=== PATIENT | male | born 1995 | race Caucasian/White ===

== ENCOUNTER 2017-11-03 00:21 | Emergency (ER) | payer OTHER ==
[~2017-11-03] VITALS: Ht 172.7 cm; Wt 62.7 kg
[2017-11-03 00:35] VITALS: TEMP 36.7; Ht 172.7 cm; Wt 62.7 kg
[2017-11-03] MEDS ORDERED: LORAZEPAM 0.5 MG TAB SL STA (00:40)
--- NOTE | 2017-11-03 01:03 | EMERGENCY ROOM VISIT NOTE ---
History Report prepared by Marisol: Alxeander Villasenor Under the Supervision of: Dr. Cedric Reynaga D.O. First contact with patient: 00:26 Chief Complaint: CHEST PAIN Stated Complaint: CHEST PAIN History of Present Illness The patient is a 22 year old male who presents to the Emergency Room with complaints of resolved chest pain that began 30 minutes ago. The patient reports a history of anxiety, which used to be more severe in the past. He reports he used to have anxiety every day and could "have a thought cause pain and inflammation of my skin". The patient states that today he was informed by [facility] that he was banned from campus. He reports that thinking about this situation made him anxious. The patient states that he was sitting on the toilet when he became nauseous and tachycardic. He reports that he vomited once on the toilet. The patient states that he became short of breath and started to experience chest pain. He states that he also experienced tingling in his hands. The patient states that he called EMS and went outside when he vomited again. He reports that after vomiting he felt relieved of symptoms. He states that his symptoms are similar to his usual anxiety attacks, which he has not had in months. The patient denies headache, change in vision, fevers, diarrhea, pain with urination, and melena. Source of History: patient Onset: 30 minutes ago Position: chest Timing: resolved Associated Symptoms: + SOB, + nausea, + vomiting, No fevers, No headache, No melena, No diarrhea, No urinary symptoms Note: Associated symptoms: tachycardia, tingling hands Review of Systems See HPI for pertinent positives & negatives. A total of 10 systems reviewed and were otherwise negative. Past Medical & Surgical Medical Problems: (1) Anxiety (2) Depression Family History Patient reports no known family medical history. Social History Smoking Status: Unknown if Ever Smoked Marital Status: single Housing Status: lives with roommate Occupation Status: employed Current/Historical Medications No Active Prescriptions or Reported Meds Allergies Coded Allergies: No Known Allergies (Unverified , 11/03/17) Physical Exam Vital Signs Date Time Temp Pulse Resp B/P (MAP) Pulse Ox O2 Delivery O2 Flow Rate FiO2 11/03/17 00:35 36.7 77 18 110/77 96 Room Air 11/03/17 00:35 Room Air Physical Exam GENERAL: Sitting up in bed, anxious, no acute distress, nontoxic, speaking in full sentences. EYE EXAM: normal conjunctiva. OROPHARYNX: no exudate, no erythema, lips, buccal mucosa, and tongue normal and mucous membranes are moist NECK: supple, no nuchal rigidity, no adenopathy, non-tender LUNGS: Clear to auscultation. Normal chest wall mechanics HEART: no murmurs, S1 normal and S2 normal ABDOMEN: abdomen soft, non-tender, normo-active bowel sounds, no masses, no rebound or guarding. BACK: Back is symmetrical on inspection and there is no deformity, no midline tenderness, no CVA tenderness. SKIN: no rashes and no bruising UPPER EXTREMITIES: upper extremities are grossly normal. LOWER EXTREMITIES: No pitting edema. Calves are equal bilaterally. NEURO EXAM: Normal sensorium, cranial nerves II-XII grossly intact, normal speech, no gross weakness of arms, no gross weakness of legs. Gross sensation intact. Medical Decision & Procedures ER Provider Diagnostic Interpretation: Radiology results as stated below per my review and interpretation: CHEST X-RAY PORTABLE AP UPRIGHT ONE VIEW: No focal infiltrate. No pneumothorax. Normal mediastinum. Laboratory Results 11/03/17 00:44 Red Blood Count 4.67, Mean Corpuscular Volume 89.1, Mean Corpuscular Hemoglobin 30.8, Mean Corpuscular Hemoglobin Concent 34.6, Neutrophils (%) (Auto) 35.7, Lymphocytes (%) (Auto) 53.7, Monocytes (%) (Auto) 7.0, Eosinophils (%) (Auto) 2.4, Basophils (%) (Auto) 1.0, Neutrophils # (Auto) 2.98, Lymphocytes # (Auto) 4.47, Monocytes # (Auto) 0.58, Eosinophils # (Auto) 0.20, Basophils # (Auto) 0.08 11/03/17 00:44 Test 11/03/17 00:44 White Blood Count 8.33 K/uL (4.8-10.8) Red Blood Count 4.67 M/uL (4.7-6.1) Hemoglobin 14.4 g/dL (14.0-18.0) Hematocrit 41.6 % (42-52) Mean Corpuscular Volume 89.1 fL (80-100) Mean Corpuscular Hemoglobin 30.8 pg (25-34) Mean Corpuscular Hemoglobin Concent 34.6 g/dl (32-36) Platelet Count 163 K/uL (130-400) Neutrophils (%) (Auto) 35.7 % Lymphocytes (%) (Auto) 53.7 % Monocytes (%) (Auto) 7.0 % Eosinophils (%) (Auto) 2.4 % Basophils (%) (Auto) 1.0 % Neutrophils # (Auto) 2.98 K/uL (1.4-6.5) Lymphocytes # (Auto) 4.47 K/uL (1.2-3.4) Monocytes # (Auto) 0.58 K/uL (0.11-0.59) Eosinophils # (Auto) 0.20 K/uL (0-0.5) Basophils # (Auto) 0.08 K/uL (0-0.2) Immature Granulocyte % (Auto) 0.2 % Immature Granulocyte # (Auto) 0.02 K/uL (0.00-0.02) Anion Gap 7.0 mmol/L (3-11) Est Creatinine Clear Calc Drug Dose 111.0 ml/min Estimated GFR () 136.2 Estimated GFR (Non- 117.5 BUN/Creatinine Ratio 6.6 (10-20) Calcium Level 8.8 mg/dl (8.5-10.1) Troponin I < 0.015 ng/ml (0-0.045) Thyroid Stimulating Hormone (TSH) 1.480 uIu/ml (0.300-4.500) Chemistry Specimen Hemolysis Laboratory results per my review. Medications Administered Medications (Trade) Dose Ordered Sig/Emily Route Start Time Stop Time Status Last Admin Dose Admin Lorazepam (Ativan Tab) 0.5 mg NOW STAT SL 11/03/17 00:40 11/03/17 00:41 DC 11/03/17 00:47 0.5 MG ECG Per My Interpretation Indication: chest pain Rate (beats per minute): 81 Rhythm: sinus rhythm Findings: no ectopy, other (right axis deviation) Comparison ECG Date: no prior available ED Course ED COURSE: Vital signs were reviewed and showed normal The patients medical record was reviewed The above diagnostic studies were performed and reviewed. ED treatments and interventions as stated above. 0028: The patient was evaluated in room B03B. A complete history and physical examination was performed. 0040: Ordered Lorazepam 0.5 mg SL. 0134: Upon reevaluation, the patient is doing well. I discussed my findings with the patient and he understands and agrees with the treatment plan. Based on the patients age, coexisting illnesses, exam and lab findings the decision to treat as an outpatient was made. The patient remained stable while under my care. The patient appeared well at the time of discharge. Medical Decision Differential diagnoses includes but is not limited to acute coronary syndrome, myocardial infarction, pericarditis, pulmonary embolus, aortic dissection, pneumonia, pneumothorax, musculoskeletal, shingles, esophageal. Patient is a 22-year-old male who presents the ER for anxiety. He notes that he got informed by a police judge that he can no longer return to campus. He is no longer a student. Following this he became very anxious flush and nauseous. He did vomit. He felt like his heart was racing and was going to pass out. He notes that this used to happen to him daily during high stress situations. He denies any history of diabetes high blood pressure high cholesterol, smoking or sudden in his family at a young age. EKG is unremarkable. Labs were obtained along with CBC, BMP and troponin. Chest x- ray unremarkable. Patient was given oral Ativan and fluids. He felt significant better. He was discharged follow-up with PCP as an outpatient. I do not feel this is cardiac in nature. I also do not feel as though this consistent with PEs as he gets this fairly regularly with stressful situations. Discussed with Pt concerning signs and symptoms to watch out for. Pt was instructed to follow up with their PCP and discussed with the patient their option to return to the ED at anytime for persistent or worsening symptoms. The appropriate anticipatory guidance and out-patient management, including indications for return to the emergency department, were explained at length to the patient and understood. Medication Reconcilliation Current Medication List: was personally reviewed by me Blood Pressure Screening Patient's blood pressure: Normal blood pressure Impression Primary Impression: Anxiety Additional Impression: Palpitations Scribe Attestation The scribe's documentation has been prepared under my direction and personally reviewed by me in its entirety. I confirm that the note above accurately reflects all work, treatment, procedures, and medical decision making performed by me. Departure Information Dispostion Home / Self-Care Prescriptions No Active Prescriptions or Reported Meds Referrals No Doctor, Assigned (PCP) Forms HOME CARE DOCUMENTATION FORM, IMPORTANT VISIT INFORMATION Patient Instructions Anxiety Body Response, ED Palpitations, My [facility] [place] Additional Instructions Please follow up with your primary care doctor or if you are a student, [facility] with in the next 24 hours. Any worsening of your symptoms, please return to the ED immediately. This includes any fevers greater than 100.4, worsening pain, chest pain, shortness breath, persistent nausea, vomiting, unable to eat or drink, or any other concerning signs or symptoms from your standpoint. You were given medications during this visit that will inhibit your ability to drive, operate machinery and work. Please do NOT drive, operate machinery, drink alcohol or work for the next 12hrs. Problem Qualifiers
[2017-11-03 01:12] LABS: BASO ABS # 0.08 K/uL (0-0.2); EOS % 2.4 %; HEMATOCRIT 41.6 % (42-52); HEMOGLOBIN 14.4 g/dL (14.0-18.0); IG# 0.02 K/uL (0.00-0.02); LYMPH % 53.7 %; LYMPH ABS # 4.47 K/uL (1.2-3.4); MEAN CELL VOLUME 89.1 fL (80-100); MEAN CORPUSCULAR HEMOGLOBIN 30.8 pg (25-34); MEAN CORPUSCULAR HGB CONC 34.6 g/dl (32-36); MONO ABS # 0.58 K/uL (0.11-0.59); NEUT % 35.7 %; NEUT ABS # 2.98 K/uL (1.4-6.5); PLATELET COUNT 163 K/uL (130-400); WHITE BLOOD COUNT 8.33 K/uL (4.8-10.8)
[2017-11-03 01:45] LABS: BLOOD UREA NITROGEN 6 mg/dl (7-18); CALCIUM 8.8 mg/dl (8.5-10.1); CARBON DIOXIDE 27 mmol/L (21-32); CREATININE 0.91 mg/dl (0.60-1.40); GLUCOSE 116 mg/dl (70-99)
[2017-11-03 01:49] LABS: POTASSIUM 3.6 mmol/L (3.5-5.1); SODIUM 139 mmol/L (136-145)
[2017-11-03 02:01] VITALS: BP 112/65; PULSE 70; O2SAT 96
--- NOTE | 2017-11-03 07:26 | DIAGNOSTIC IMAGING REPORT ---
SINGLE VIEW CHEST CLINICAL HISTORY: Atypical chest pain. FINDINGS: An AP, portable, upright chest radiograph is obtained. No prior studies are available for comparison at the time of dictation. The examination is degraded by portable technique and patient rotation. The cardiomediastinal silhouette is unremarkable. The lungs and pleural spaces are clear. No pneumothorax is seen. The bony thorax is grossly intact. IMPRESSION: No active disease in the chest. Electronically signed by: Jun Echavarria M.D. 11/03/2017 7:24 AM Dictated Date/Time: 11/03/2017 7:24 AM
== END 2017-11-03 02:02 | disposition home or self-care (01) ==
LOC: EDBD 00:21 → C.EDB 00:22
DX: F41.8 Other specified anxiety disorders (principal); R00.2 Palpitations

== ENCOUNTER 2025-04-25 09:55 | Inpatient (IN) ==
--- NOTE | 2025-04-25 10:33 | Emergency Department Note ---
History of Present Illness General Chief complaint: Abdominal Pain Stated complaint: AB PAIN Time Seen by Provider: 04/25/25 10:08 History of Present Illness Patient is a 29-year-old male with documented past medical history significant for anxiety and depression and kidney stones who is now incarcerated at the [facility]. He is brought to the emergency department by corrections officers for evaluation of weakness, not eating or drinking for the last week, and apparent abdominal pain. Corrections officers are not able to provide any meaningful history, the patient has not been communicative with [facility] staff since intake on 04/13. A note from the phone call from "Neva" from the [facility] states "came in on 04/13, went on hunger strike, did eat a few meals then strike again, missed last 78 meals, Responds to internal stimuli. AMS. History of drug/benzo meth abuse. Noncompliant with meds and refusing." From prior ED visits, including 1 about a month ago, it is known that patient is able to communicate and relate his complaints of medical history. He will not answer questions on exam, motions to the abdomen, when asked if he has abdominal pain. Staff do report that mental health has been checking in on the patient, but they have no specific concerns. Home Medications Medication Instructions Recorded Confirmed Type No Known Home Medications 12/15/24 04/25/25 History Allergies Allergy/AdvReac Type Severity Reaction Status Date / Time No Known Allergies Allergy Verified 04/25/25 15:45 Past Med/Surg History Problem List (Updated 04/25/25 @ 16:26 by Robert Hawk) Acute hypernatremia (Acute) Acute kidney injury (Acute) Pneumomediastinum (Acute) Medical History Depression Anxiety History of kidney stones Surgical History History of lithotripsy Social History Smoking Status: Current some day smoker Tobacco Type: Cigarettes Preferred Language: Togolese Feels Safe at Home: Yes Review of Systems Unobtainable due to cognitive status Physical Exam Vital Signs Vital Signs - 24 hr 04/25/25 10:02 04/25/25 10:05 04/25/25 10:39 Temperature 36.6 C Temperature Source Oral Pulse Rate 67 90 94 H Pulse Rate [Apical] Pulse Rate from SpO2 Sensor Respiratory Rate 16 16 Respiratory Effort / Characteristics Non-Labored Spontaneous Respiratory Depth Normal Respiratory Pattern Regular Blood Pressure 129/89 Blood Pressure [Right Arm] Blood Pressure Mean 102 Blood Pressure Mean [Right Arm] Pulse Oximetry 98 99 Oxygen Delivery Method Room Air Room Air Sepsis Recent Fever Within 48 Hours No Sepsis New/Unexplained Change in Mental Status No Sepsis Action Taken by Nursing No Action Required 04/25/25 11:00 04/25/25 11:30 04/25/25 12:00 Temperature Temperature Source Pulse Rate 93 H 65 Pulse Rate [Apical] 93 H Pulse Rate from SpO2 Sensor 102 H 66 Respiratory Rate 17 17 16 Respiratory Effort / Characteristics Non-Labored Spontaneous Respiratory Depth Normal Respiratory Pattern Regular Blood Pressure 130/87 129/86 Blood Pressure [Right Arm] 102/78 Blood Pressure Mean 103 103 Blood Pressure Mean [Right Arm] 86 Pulse Oximetry 98 98 97 Oxygen Delivery Method Room Air Room Air Room Air Sepsis Recent Fever Within 48 Hours Sepsis New/Unexplained Change in Mental Status Sepsis Action Taken by Nursing 04/25/25 12:32 04/25/25 13:39 04/25/25 14:30 Temperature Temperature Source Pulse Rate 61 75 81 Pulse Rate [Apical] Pulse Rate from SpO2 Sensor 64 76 88 Respiratory Rate 15 26 H Respiratory Effort / Characteristics Respiratory Depth Respiratory Pattern Blood Pressure 102/78 110/56 L Blood Pressure [Right Arm] Blood Pressure Mean 95 74 Blood Pressure Mean [Right Arm] Pulse Oximetry 97 98 98 Oxygen Delivery Method Room Air Room Air Sepsis Recent Fever Within 48 Hours Sepsis New/Unexplained Change in Mental Status Sepsis Action Taken by Nursing 04/25/25 15:19 04/25/25 15:30 Temperature Temperature Source Pulse Rate 94 H 87 Pulse Rate [Apical] Pulse Rate from SpO2 Sensor 88 Respiratory Rate 16 Respiratory Effort / Characteristics Respiratory Depth Respiratory Pattern Blood Pressure 149/102 H Blood Pressure [Right Arm] Blood Pressure Mean 117 Blood Pressure Mean [Right Arm] Pulse Oximetry 95 Oxygen Delivery Method Room Air Sepsis Recent Fever Within 48 Hours Sepsis New/Unexplained Change in Mental Status Sepsis Action Taken by Nursing CONSTITUTIONAL: Patient is a 29-year-old male who is sitting semiupright on the gurney. He will make eye contact, and is cooperative with exam and Commands, but will not answer questions. EYES: Pupils equal, round, reactive to light and accommodation. EOMs intact without nystagmus. Sclera are anicteric. ENT: Tympanic membranes intact, with normal landmarks. External canals are clear. Oral and nasopharynx are clear. Mucous membranes are dry, no lesions, tongue and gums appear normal. CARDIOVASCULAR: Regular rate and rhythm. RESPIRATORY: Breath sounds diminished, but clear. No adventitious sounds noted. GI: Bowel sounds are present. Abdomen is soft, scaphoid, diffusely tender to palpation throughout. MUSCULOSKELETAL: Full range of motion of extremities x 4 with good strength. No cyanosis, edema, joint tenderness or swelling. No deformity. INTEGUMENTARY: No lesions or rash, normal skin turgor. NEUROLOGICAL: Cooperative. Will not answer questions. LYMPH: No lymphadenopathy. Course Course The patient was seen and assessed as above. External medical records were reviewed. Patient was here 1 month ago for arm pain after donating plasma, at that time, was conversant and cooperative with staff and provided his own history. Per incident flowsheet from the correctional facility: "patient in cell awaiting to see psych, patient noted to be weak, unable to stand, not responding to directions, weightless, not eating any meals recently. Weight loss of 20 pounds since 04/13/2025." Per EMS, IV was initiated, he was given a 500 cc bolus of normal saline solution and 4 mg of Zofran. Patient did not refuse interventions, but would not answer questions during history. Case reviewed with attending physician, Dr. Zamarripa, and workup pursued. He already had an IV in place. He was ordered a liter of normal saline solution, and Pepcid. CBC with differential, CMP and lipase were obtained. CT scan of the abdomen pelvis with IV contrast was performed. Diagnostics, as interpreted by me: Laboratory studies: Mildly elevated white count at 11,200. H&H normal. Sodium 149, potassium 4.2, chloride 110, carbon oxide 28, BUN 59, creatinine mildly elevated 1.61. Mild, nonspecific elevation of the total bilirubin at 1.4, AST 48. Lipase is normal. Cardiac monitoring: An order was placed for continuous cardiac monitoring. The monitor shows a NSR at a rate of 84 per my interpretation. Imaging studies: Chest CT: Large amount of pneumomediastinum with deep tissue air tracking into the base of the neck, supraclavicular distributions and upper abdomen. Trace basilar pneumothoraces noted. Source of these findings not seen on exam, however statistically favors an occult bronchioloalveolar injury. Unremarkable-appearing of the esophagus. Repeat chest CT with p.o. contrast: no esophageal contrast extravasation Abdomen/pelvis CT: Large amount of pneumoperitoneum which dissects into the retroperitoneum just below the diaphragm. No intraperitoneal free air seen. Trace pneumothorax at the right lung base. No acute infectious/inflammatory findings in the abdomen or pelvis. Right nephrolithiasis noted. Abdominal CT as above, given this, chest CT was obtained. I originally did not order the p.o. contrast as I was concerned about patient cooperation. Chest CT confirms large amount of pneumomediastinum, statistically a occult bronchioloalveolar injury. The esophagus appeared to be unremarkable on this noncontrasted study. Patient presentation reviewed with Dr. Thomas with pulmonology. While he does not feel that the pneumomediastinum requires anything other than monitoring, he is adamant that the esophagus needs to be evaluated, if there is esophageal injury/source for the pneumomediastinum, the patient cannot be cared for here. I attempted to order a barium swallow, however all of our radiologists are gone for the day and cannot perform the study. Given this, I did order a repeat chest CT with p.o. contrast to evaluate the esophagus. Per my interpretation and review with Dr. Zamarripa, no contrast extravasation to indicate esophageal injury. Patient and corrections officers updated at bedside. I do feel that further inpatient care for dehydration/ALLYSON is warranted, monitoring of pneumomediastinum and do not feel that the patient can safely go back to the [facility]. Attending physician, Dr. Flores, was updated regarding test results and findings, and involved in the patient's entire ED stay. Patient reviewed with ED rehabilitation caseworker, and [facility] hospitalist service consulted for admission. Patient was reviewed with Dr. Albert. Differential diagnosis: Cardiac ischemia, aortic dissection, pulmonary embolism, pneumothorax, pneumonia, pericarditis, myocarditis, esophageal rupture, GERD, cholecystitis, pancreatitis, musculoskeletal, dehydration, electrolyte imbalance, among others. Administered Medications Discontinued Medications Sodium Chloride (Nss) 1,000 mls @ 999 mls/hr IV .Q1H1M TERESA Stop: 04/25/25 11:39 Last Infusion: 04/25/25 13:00 Dose: Infused Documented By: Admin: 04/25/25 10:48 Dose: 999 mls/hr Documented By: LISSETH Famotidine (Pepcid 20mg Iv Push) 20 mg in 5 mls @ 2.5 mls/min IV NOW STA Stop: 04/25/25 10:40 Last Admin: 04/25/25 10:46 Dose: 2.5 mls/min Documented By: LISSETH Ioversol (Optiray 320 100ml) 94 ml IV ONCE ONE Stop: 04/25/25 11:20 Last Admin: 04/25/25 11:20 Dose: 94 ml Documented By: SAMIR Medical Decision Making Differential Diagnosis See ED Course. Medical Records Attestation: I reviewed the patient's medical records. Home Medications Current Medication List: was personally reviewed by me Laboratory Data Attestation: I reviewed the patient's lab results. 04/25/25 10:06 04/25/25 10:06 Lab Results 04/25/25 Range/Units 10:06 WBC 11.22 H (4.8-10.8) K/ul RBC 5.82 (4.70-6.10) M/uL Hgb 17.6 (14.0-18.0) g/dl Hct 51.9 (42.0-52.0) % MCV 89.2 (80.0-100.0) fL MCH 30.2 (25.0-34.0) pg MCHC 33.9 (32.0-36.0) g/dL RDW Std Deviation 40.2 (36.4-46.3) fL RDW Coeff of Thomas 12.4 (11.5-14.5) % Plt Count 230 (130-400) K/uL MPV 12.9 H (9.4-12.4) fL Immature Gran % (Auto) 0.3 % Neut % (Auto) 75.8 % Lymph % (Auto) 16.8 % [place] % (Auto) 6.5 % Eos % (Auto) 0.4 % Baso % (Auto) 0.2 % Neut # (Auto) 8.50 H (1.40-6.50) K/uL Lymph # (Auto) 1.89 (1.20-3.40) K/uL [place] # (Auto) 0.73 H (0.11-0.59) K/uL Eos # (Auto) 0.05 (0.00-0.50) K/uL Baso # (Auto) 0.02 (0.00-0.20) K/uL Immature Gran # (Auto) 0.03 (0.01-0.20) K/uL Sodium 149 H (136-145) mmol/L Potassium 4.2 (3.5-5.1) mmol/L Chloride 110 H (98-107) mmol/L Carbon Dioxide 28 (21-32) mmol/L Anion Gap 11 (3-11) BUN 59 H (6-23) mg/dl Creatinine 1.61 H (0.6-1.4) mg/dl Est Cr Clr Drug Dosing Not Reportable eGFR 58.27 BUN/Creatinine Ratio 36.6 H (10-20) Glucose 175 H (70-99(Fasting)) mg/dl Calcium 10.2 (8.6-10.3) mg/dl Total Bilirubin 1.4 H (0.2-1.0) mg/dl AST 48 H (13-39) U/L ALT 46 (7-52) U/L Alkaline Phosphatase 64 (34-104) U/L Total Protein 8.3 (6.0-8.3) gm/dl Albumin 4.5 (3.4-5.0) gm/dl Globulin 3.8 (2.5-4.0) gm/dl Albumin/Globulin Ratio 1.2 (0.9-2) Lipase 51 (11-82) U/L Imaging Data Attestation: I personally reviewed and interpreted this imaging study as follows: Radiologist's Impression: Abdomen/Pelvis CT 04/25/25 10:39 CT SCAN OF THE ABDOMEN AND PELVIS WITH IV CONTRAST CLINICAL HISTORY: Generalized abdominal pain. COMPARISON STUDY: Renal ultrasound dated 12/27/2023 TECHNIQUE: Following the IV administration of 94 cc of Optiray 320, CT scan of the abdomen and pelvis is performed from the lung bases to the proximal femora. Images are reviewed in the axial, sagittal, and coronal planes. IV contrast was administered without complication. A dose lowering technique was utilized adhering to the principles of ALARA. There is streak artifact from the arms which could not be elevated above the abdomen. CT DOSE: 857.53 mGy.cm FINDINGS: Lung bases: There is a large amount of pneumomediastinum. Trace pneumothorax is seen at the right lung base The heart is normal in size and without pericardial effusion. The lung bases are clear. Liver: The contrast-enhanced liver is normal in size, contour, and attenuation. Fatty infiltration is seen adjacent to the falciform ligament. There is no intrahepatic biliary ductal dilatation. The hepatic veins and portal veins are patent. Gallbladder: Unremarkable. Spleen: Normal in size and attenuation. Pancreas: Unremarkable. Adrenal glands: Unremarkable. Kidneys: The contrast enhanced kidneys are normal in size and without hydronephrosis. The kidneys enhance symmetrically. There is a 3 mm nonobstructing right renal calculus. No left renal calculi are identified on this contrast-enhanced examination and no ureteral stone is seen. Abdominal vasculature: The abdominal aorta is normal in course and caliber. Bowel: There is mild/moderate colonic fecal retention. No bowel obstruction is seen. The appendix is well-visualized and normal. Peritoneum: Pneumomediastinum dissects into the retroperitoneum just below the diaphragm. No intraperitoneal free air is seen and there is no abdominal ascites. Lymphadenopathy: None. Pelvic viscera: The bladder is distended but otherwise normal as imaged. The prostate and seminal vesicles are normal as visualized. Skeletal structures: No lytic or blastic lesions are seen. IMPRESSION: 1. There is a large amount of pneumomediastinum seen in the lower chest. 2. Trace pneumothorax is seen at the right lung base. 3. No acute infectious or inflammatory findings are identified in the abdomen or pelvis. 4. Bladder distention. 5. Right-sided nephrolithiasis. 6. Additional findings as above. ACT 112: Negative or not required by law. Electronically signed by: Jun Echavarria M.D. 04/25/2025 11:[address] 04/25/25 11:49 CT chest diagnostic wo con CT DOSE: 304.86 mGy.cm CLINICAL HISTORY: 29 years-old Male with pneumomediastinum on abd ct. Acute chest pain TECHNIQUE: Multiaxial CT images of the chest were performed without contrast. A dose lowering technique was utilized adhering to the principles of ALARA. COMPARISON: CT abdomen and pelvis of same day FINDINGS: Unremarkable thyroid. No lymphadenopathy. Heart is normal in size without pericardial effusion. Large amount of pneumomediastinum with pneumopericardium. Deep tissue air extends into the base of the neck, shoulders and supraclavicular distributions with subcutaneous emphysema. Trace air within the bilateral pleural spaces. No pleural effusion, airspace consolidation, pulmonary edema, suspicious pulmonary nodule or mass. Central airways are patent. Contrast the renal collecting systems. CT abdomen and pelvis dictated separately. No acute fracture. Unremarkable appearance of the esophagus. No acute fracture. IMPRESSION: 1. Large amount of pneumomediastinal with deep tissue air tracking into the base of the neck, supraclavicular distributions and upper abdomen also causing trace basilar pneumothoraces. Source of these findings is not seen on this study, however statistically favors an occult bronchoalveolar injury. 2. Unremarkable appearance of the esophagus. 3. No lymphadenopathy or pleural effusion. 4. No acute fracture. ACT 112: Negative or not required by law. Electronically signed by: Kilo Saenz M.D. 04/25/2025 2:[address] 04/25/25 14:57 CT chest without IV contrast, with oral contrast History: Chest pain Comparison: None Technique: Helical CT imaging of the chest performed without IV contrast. Oral contrast administered Dose reduction techniques were achieved by using automatic exposure control and/or adjustment of mA and/or kV according to patient size and/or use of iterative reconstruction technique. Findings: No focal consolidation. No pleural effusion. No pneumothorax. Chest pneumomediastinum is again seen,. Soft tissue emphysema extends throughout the base of the neck. Oral contrast in the esophagus seen without extravasation. No esophageal wall defect. Heart size is normal. The thoracic aorta is normal in size. The pulmonary artery is normal in size. No significant pericardial effusion. No suspicious lymphadenopathy in the chest. The central airway is clear. Limited visualized upper abdomen. No acute bony abnormalities. Impression: Pneumomediastinum. Oral contrast in the esophagus without evidence for esophageal tear. Electronically signed by Landon Villeda 04-25-2025 4:39 PM MDM Narrative See ED Course. Impression & Plan Pneumomediastinum, Acute kidney injury, Acute hypernatremia Discharge Plan Visit Data Chief Complaint: Abdominal Pain Stated Complaint: AB PAIN ED Provider: Sami Zamarripa ED Midlevel Provider: Robert Hawk Discharge Problem: Pneumomediastinum, Acute kidney injury, Acute hypernatremia Patient Disposition: Being Evaluated by Hospitalist Condition: Fair Forms Stand Alone Forms: [employer] Prescriptions Prescriptions: No Action No Known Home Medications Referrals Referrals: Diamante Madrid DO [Outside Practitioners] -
[2025-04-25] MEDS: FAMOTIDINE 20MG IV PUSH 20 MG/5 ML SYR IV STA (10:46)
[2025-04-25] MEDS: SODIUM CHLORIDE 0.9% 1,000 ML IV SCH ×2 (10:48→18:23)
[2025-04-25 10:57] LABS: Hematocrit (blood only) 51.9 % (42.0-52.0); Hemoglobin 17.6 g/dl (14.0-18.0); Immature Granulocytes # (auto) 0.03 K/uL (0.01-0.20); Immature Granulocytes % (auto) 0.3 %; Mean Corpuscular Hemoglobin 30.2 pg (25.0-34.0); Mean Corpuscular Volume 89.2 fL (80.0-100.0); Platelet Count 230 K/uL (130-400); RDW Standard Deviation 40.2 fL (36.4-46.3); Red Blood Count 5.82 M/uL (4.70-6.10); White Blood Count 11.22 K/ul (4.8-10.8)
[2025-04-25 11:02] LABS: Alanine Aminotransferase 46 U/L (7-52); Albumin Globulin Ratio 1.2 (0.9-2); Alkaline Phosphatase 64 U/L (34-104); Anion Gap 11 (3-11); Bilirubin,Total 1.4 mg/dl (0.2-1.0); Blood Urea Nitrogen 59 mg/dl (6-23); Calcium 10.2 mg/dl (8.6-10.3); Carbon Dioxide 28 mmol/L (21-32); Chloride 110 mmol/L (98-107); Globulin 3.8 gm/dl (2.5-4.0); Glucose 175 mg/dl (70-99(Fasting)); Lipase 51 U/L (11-82); Potassium 4.2 mmol/L (3.5-5.1); Sodium 149 mmol/L (136-145); Total Protein 8.3 gm/dl (6.0-8.3)
[2025-04-25] MEDS: OPTIRAY 320 100ml IV ONE (11:20)
--- NOTE | 2025-04-25 11:41 | CT Scan Report ---
CT SCAN OF THE ABDOMEN AND PELVIS WITH IV CONTRAST CLINICAL HISTORY: Generalized abdominal pain. COMPARISON STUDY: Renal ultrasound dated 12/27/2023 TECHNIQUE: Following the IV administration of 94 cc of Optiray 320, CT scan of the abdomen and pelvi s is performed from the lung bases to the proximal femora. Images are reviewed in the axial, sagittal , and coronal planes. IV contrast was administered without complication. A dose lowering technique wa s utilized adhering to the principles of ALARA. There is streak artifact from the arms which could no t be elevated above the abdomen. CT DOSE: 857.53 mGy.cm FINDINGS: Lung bases: There is a large amount of pneumomediastinum. Trace pneumothorax is seen at the right liliam g base The heart is normal in size and without pericardial effusion. The lung bases are clear. Liver: The contrast-enhanced liver is normal in size, contour, and attenuation. Fatty infiltration is seen adjacent to the falciform ligament. There is no intrahepatic biliary ductal dilatation. The hep atic veins and portal veins are patent. Gallbladder: Unremarkable. Spleen: Normal in size and attenuation. Pancreas: Unremarkable. Adrenal glands: Unremarkable. Kidneys: The contrast enhanced kidneys are normal in size and without hydronephrosis. The kidneys enh ance symmetrically. There is a 3 mm nonobstructing right renal calculus. No left renal calculi are id entified on this contrast-enhanced examination and no ureteral stone is seen. Abdominal vasculature: The abdominal aorta is normal in course and caliber. Bowel: There is mild/moderate colonic fecal retention. No bowel obstruction is seen. The appendix is well-visualized and normal. Peritoneum: Pneumomediastinum dissects into the retroperitoneum just below the diaphragm. No intraper itoneal free air is seen and there is no abdominal ascites. Lymphadenopathy: None. Pelvic viscera: The bladder is distended but otherwise normal as imaged. The prostate and seminal ves icles are normal as visualized. Skeletal structures: No lytic or blastic lesions are seen. IMPRESSION: 1. There is a large amount of pneumomediastinum seen in the lower chest. 2. Trace pneumothorax is seen at the right lung base. 3. No acute infectious or inflammatory findings are identified in the abdomen or pelvis. 4. Bladder distention. 5. Right-sided nephrolithiasis. 6. Additional findings as above. ACT 112: Negative or not required by law. Electronically signed by: Jun Echavarria M.D. 04/25/2025 11:39 AM
--- NOTE | 2025-04-25 14:29 | CT Scan Report ---
CT chest diagnostic wo con CT DOSE: 304.86 mGy.cm CLINICAL HISTORY: 29 years-old Male with pneumomediastinum on abd ct. Acute chest pain TECHNIQUE: Multiaxial CT images of the chest were performed without contrast. A dose lowering techni que was utilized adhering to the principles of ALARA. COMPARISON: CT abdomen and pelvis of same day FINDINGS: Unremarkable thyroid. No lymphadenopathy. Heart is normal in size without pericardial effus ion. Large amount of pneumomediastinum with pneumopericardium. Deep tissue air extends into the base of the neck, shoulders and supraclavicular distributions with subcutaneous emphysema. Trace air withi n the bilateral pleural spaces. No pleural effusion, airspace consolidation, pulmonary edema, suspici ous pulmonary nodule or mass. Central airways are patent. Contrast the renal collecting systems. CT abdomen and pelvis dictated separately. No acute fracture. Unremarkable appearance of the esophagus. No acute fracture. IMPRESSION: 1. Large amount of pneumomediastinal with deep tissue air tracking into the base of the neck, supracl avicular distributions and upper abdomen also causing trace basilar pneumothoraces. Source of these f indings is not seen on this study, however statistically favors an occult bronchoalveolar injury. 2. Unremarkable appearance of the esophagus. 3. No lymphadenopathy or pleural effusion. 4. No acute fracture. ACT 112: Negative or not required by law. Electronically signed by: Kilo Saenz M.D. 04/25/2025 2:28 PM
--- NOTE | 2025-04-25 16:40 | CT Scan Report ---
CT chest without IV contrast, with oral contrast History: Chest pain Comparison: None Technique: Helical CT imaging of the chest performed without IV contrast. Oral contrast administered Dose reduction techniques were achieved by using automatic exposure control and/or adjustment of mA and/or kV according to patient size and/or use of iterative reconstruction technique. Findings: No focal consolidation. No pleural effusion. No pneumothorax. Chest pneumomediastinum is again seen,. Soft tissue emphysema extends throughout the base of the neck. Oral contrast in the esophagus seen without extravasation. No esophageal wall defect. Heart size is normal. The thoracic aorta is normal in size. The pulmonary artery is normal in size. No significant pericardial effusion. No suspicious lymphadenopathy in the chest. The central airway is clear. Limited visualized upper abdomen. No acute bony abnormalities. Impression: Pneumomediastinum. Oral contrast in the esophagus without evidence for esophageal tear. Electronically signed by Landon Villeda 04-25-2025 4:39 PM
--- NOTE | 2025-04-25 17:10 | XRay Report ---
Clinical History: Pneumomediastinum Technique: 2 frontal views of the chest were obtained Comparison is made to the chest CT obtained earlier today Findings: Pneumomediastinum and chest wall air is again seen There are no confluent pulmonary infiltrates. The heart size is within normal limits. No pleural effusion or pneumothorax is seen. There is no definite pulmonary nodule. No fracture is noted. No foreign body is seen Impression: Unchanged pneumomediastinum and chest wall air Electronically signed by Santos Mancera 04-25-2025 5:09 PM
--- NOTE | 2025-04-25 17:24 | History & Physical Report ---
Date of Service April 25, 2025 Assessment & Plan (1) Pneumomediastinum: Plan: Incidental finding on CT scans. Serial chest x-rays ordered. Supportive care (2) Acute kidney injury: Plan: IV fluids ordered. Monitor urine output. Serial labs (3) Metabolic encephalopathy: Plan: Currently nonverbal. Supportive care. Tox screen Plan Hopeful return to the present [facility] sometime within the next several days History of Present Illness Chief Complaint: Not eating. Not speaking Primary Care Provider: [facility] 29-year-old white male from a local longterm who has not been eating or speaking for several days and now has become volume depleted and encephalopathic. Incidental finding of pneumomediastinum seen on CT scanning. Fortunately his oxygen saturation is stable. No apparent illicit drug use or trauma according to longterm guards who are present. IV fluids have been started. Chest x-ray and EKG ordered and pending. He is admitted for further evaluation and treatment Allergies Allergy/AdvReac Type Severity Reaction Status Date / Time No Known Allergies Allergy Verified 04/25/25 15:45 Home Medications Medication Instructions Recorded Confirmed Type multivitamin 1 tab PO DAILY 04/25/25 04/25/25 History nutritional supplements 1 ea PO TID 04/25/25 04/25/25 History Past Med/Surg History Problem List (Updated 04/25/25 @ 17:23 by Alexis Albert MD) Metabolic encephalopathy Acute hypernatremia (Acute) Acute kidney injury (Acute) Pneumomediastinum (Acute) Medical History Depression Anxiety History of kidney stones Surgical History History of lithotripsy Social History Smoking Status: Current some day smoker Tobacco Type: Cigarettes Preferred Language: Nepalese Feels Safe at Home: Yes Review of Systems 2 Review of Systems: The patient is awake but nonverbal with me at this time. Physical Exam 2 Physical Exam: General-alert but nonverbal. No fever. HEENT-head atraumatic and normocephalic, pupils equal and reactive to light, extraocular muscles intact Neck-no lymphadenopathy or thyromegaly, trachea midline Chest-clear to auscultation. No rales, wheezing or rhonchi from anterior approach. He is mildly tachypneic Cardiac-slightly tachycardic regular rate and rhythm, normal S1 and S2 Abdomen-normal bowel sounds, no hepatosplenomegaly Extremities-no cyanosis, clubbing, or edema Neuro-cranial nerves II through XII intact, motor and sensory function within normal limits, strength symmetrical, no focal deficits. Moving all extremities randomly Psych-nonverbal. Cannot assess Results & Data Results & Data Vital Signs (Past 12 Hours) Vital Signs Temp Pulse Pulse Resp BP BP Pulse Ox 04/25/25 15:30 87 16 149/102 H 95 04/25/25 15:19 94 H 04/25/25 14:30 81 26 H 110/56 L 98 04/25/25 13:39 75 15 98 04/25/25 12:32 61 102/78 97 04/25/25 12:00 93 H 16 102/78 97 04/25/25 11:30 65 17 129/86 98 04/25/25 11:00 93 H 17 130/87 98 04/25/25 10:39 94 H 16 99 04/25/25 10:05 90 04/25/25 10:02 36.6 C 67 16 129/89 98 O2 Del Method 04/25/25 15:30 Room Air 04/25/25 15:19 04/25/25 14:30 Room Air 04/25/25 13:39 04/25/25 12:32 Room Air 04/25/25 12:00 Room Air 04/25/25 11:30 Room Air 04/25/25 11:00 Room Air 04/25/25 10:39 Room Air 04/25/25 10:05 04/25/25 10:02 Room Air Laboratory Results 04/25/25 10:06 04/25/25 10:06 Code Status & VTE Plan Code Status Full code PG Care Time/CCT Total # of Minutes Spent Total Time Spent with Patient: Total time spent is greater than 50% in coordination of care (as documented) at patient's floor/unit and/or counseling patient: Coding Level of Care Code 82018 INT INP/OBS CARE 3/75MIN Diagnoses Pneumomediastinum J98.2 Acute kidney injury N17.9 Metabolic encephalopathy G93.41
[2025-04-25] MEDS: SODIUM CHLORIDE 0.45 % 1,000 ML IV SCH (18:36)
[2025-04-25 20:42] LABS: Appearance Urine Clear (Clear); Bacteria Urine Automated None Seen (None Seen); Epithelial Cell Urine Auto 0-2 /hpf (0-2); Glucose Urine UA Negative (Negative); RBC Urine Automated 0-2 /hpf (0-2); WBC Urine Automated 0-5 /hpf (0-5)
[2025-04-26] MEDS ORDERED: ONDANSETRON INJ 2 MG/ML 2 ML VIAL IV PRN (02:38)
[2025-04-26] MEDS: HEPARIN SOD 5,000 UNIT/0.5 ML VIAL SQ SCH (02:54)
[2025-04-26 06:27] LABS: Hematocrit (blood only) 45.6 % (42.0-52.0); Hemoglobin 15.1 g/dl (14.0-18.0); Immature Granulocytes # (auto) 0.02 K/uL (0.01-0.20); Immature Granulocytes % (auto) 0.2 %; Mean Corpuscular Hemoglobin 30.2 pg (25.0-34.0); Mean Corpuscular Volume 91.2 fL (80.0-100.0); Platelet Count 193 K/uL (130-400); RDW Standard Deviation 42.0 fL (36.4-46.3); Red Blood Count 5.00 M/uL (4.70-6.10); White Blood Count 8.93 K/ul (4.8-10.8)
[2025-04-26 07:20] LABS: Anion Gap 8.0 (3-11); Blood Urea Nitrogen 34.0 mg/dl (6-23); Calcium 9.5 mg/dl (8.6-10.3); Carbon Dioxide 26.0 mmol/L (21-32); Chloride 116.0 mmol/L (98-107); Creatinine Clr Calc Pharmacy 78.7 ml/min; Glucose 98.0 mg/dl (70-99(Fasting)); Potassium 4.2 mmol/L (3.5-5.1); Sodium 150.0 mmol/L (136-145)
--- NOTE | 2025-04-26 08:25 | XRay Report ---
XR chest 1V portable CLINICAL HISTORY: Pneumomediastinum. COMPARISON STUDY: Chest radiograph and chest CT April 25, 2025. FINDINGS: Lung volumes are normal. There is no consolidation to suggest pneumonia. Pneumomediastinum has slightly increased since chest radiograph of April 25, 2025. Associated soft tissue gas within the lower neck and chest has slightly increased. There are suspected trace biapical pneumothoraces. Patient is mildly rotated. Cardiac size is normal. IMPRESSION: 1. Slight increase in pneumomediastinum since chest radiograph of April 25, 2025. Slight increase in soft tissue gas within the lower neck and upper chest. 2. Suspected trace biapical pneumothoraces. ACT 112: Negative or not required by law. Electronically signed by: Moe Edgar M.D. 04/26/2025 8:22 AM
[2025-04-26] MEDS: MULTIVITAMIN TAB PO SCH (08:45)
[2025-04-26 10:40] LABS: Amphetamines+Metham, Urine Neg (Neg); MDMA (Ecstacy), Urine Neg (Neg); Marijuana, Urine Neg (Neg)
--- NOTE | 2025-04-26 11:51 | Hospitalist Progress Note ---
Date of Service April 26, 2025 Assessment & Plan (1) Pneumomediastinum: Plan: Incidental finding on CT scans. Serial chest x-rays ordered. Small bilateral apical pneumothoraces noted. Will follow. Continue supportive care (2) Acute kidney injury: Plan: Resolved with IV fluids. Rate tapered down. Monitor urine output. Serial labs (3) Metabolic encephalopathy: Plan: Currently nonverbal. Supportive care. Tox screen still pending Plan Hopeful return to the [facility] sometime within the next several days Admission and Anticipated Discharge Date Admission Date: April 25, 2025 Subjective The patient is awake and sitting up in no acute distress. He ate a little of his breakfast. He looks better than he did on admission. Sodium remains elevated but creatinine has now normalized with IV fluids. Toxicology screen remains pending. Chest x-ray looks about the same to me but radiology says the pneumomediastinum has progressed and he now has small biapical pneumothoraces. Will follow with daily chest x-ray. Review of Systems 2 Review of Systems: The patient is awake but remains nonverbal with me. Physical Exam 2 Physical Exam: General-alert but nonverbal. No fever. HEENT-head atraumatic and normocephalic, pupils equal and reactive to light, extraocular muscles intact Neck-no lymphadenopathy or thyromegaly, trachea midline Chest-clear to auscultation. No rales, wheezing or rhonchi from anterior approach. He is mildly tachypneic Cardiac-slightly tachycardic regular rate and rhythm, normal S1 and S2 Abdomen-normal bowel sounds, no hepatosplenomegaly Extremities-no cyanosis, clubbing, or edema Skinsubcutaneous crepitus palpable in lateral upper chest region and neck region Neuro-cranial nerves II through XII intact, motor and sensory function within normal limits, strength symmetrical, no focal deficits. Moving all extremities randomly Psych-nonverbal. Cannot assess Results & Data Results & Data Vital Signs (Past 12 Hours) Vital Signs Temp Pulse Pulse Resp BP BP Pulse Ox 04/26/25 07:40 79 123/80 97 04/26/25 03:25 57 L 04/26/25 02:35 04/26/25 02:35 36.6 C 82 33 H 131/80 100 04/26/25 02:00 79 16 129/95 100 04/26/25 01:30 68 16 136/92 100 09/06/25 01:00 61 18 145/96 H 99 04/26/25 00:30 61 18 139/95 99 O2 Del Method 04/26/25 07:40 Room Air 04/26/25 03:25 04/26/25 02:35 Room Air 04/26/25 02:35 Room Air 04/26/25 02:00 Room Air 04/26/25 01:30 Room Air 04/26/25 01:00 Room Air 04/26/25 00:30 Room Air Laboratory Results 04/26/25 06:02 04/26/25 06:02 PG Care Time/CCT Total # of Minutes Spent Total Time Spent with Patient: Total time spent is greater than 50% in coordination of care (as documented) at patient's floor/unit and/or counseling patient: Coding Level of Care Code 54248 SUB INP/OBS CARE 3/50MIN Diagnoses Pneumomediastinum J98.2 Acute kidney injury N17.9 Metabolic encephalopathy G93.41
--- NOTE | 2025-04-26 12:31 | Electrocardiogram Report ---
Test Reason : Blood Pressure : */* mmHG Vent. Rate : 80 BPM Atrial Rate : 80 BPM P-R Int : 110 ms QRS Dur : 68 ms QT Int : 402 ms P-R-T Axes : 74 94 81 degrees QTcB Int : 463 ms Sinus rhythm with sinus arrhythmia with short NH Rightward axis Borderline ECG When compared with ECG of 03-Nov-2017 00:27, NH interval has decreased Confirmed by Jeremiah Villalobos ([id number]) on 04/26/2025 12:31:26 PM Referred By: [facility] Confirmed By: Jeremiah Villalobos
[2025-04-27] MEDS: ACETAMINOPHEN 1,000 MG/100 ML VIAL IV PRN (03:50)
[2025-04-27 07:42] LABS: Hematocrit (blood only) 42.3 % (42.0-52.0); Hemoglobin 13.9 g/dl (14.0-18.0); Immature Granulocytes # (auto) 0.03 K/uL (0.01-0.20); Immature Granulocytes % (auto) 0.5 %; Mean Corpuscular Hemoglobin 29.8 pg (25.0-34.0); Mean Corpuscular Volume 90.6 fL (80.0-100.0); Platelet Count 169 K/uL (130-400); RDW Standard Deviation 41.1 fL (36.4-46.3); Red Blood Count 4.67 M/uL (4.70-6.10); White Blood Count 6.58 K/ul (4.8-10.8)
[2025-04-27 08:02] LABS: Anion Gap 7.0 (3-11); Blood Urea Nitrogen 24.0 mg/dl (6-23); Calcium 8.8 mg/dl (8.6-10.3); Carbon Dioxide 25.0 mmol/L (21-32); Chloride 112.0 mmol/L (98-107); Creatinine Clr Calc Pharmacy 120.0 ml/min; Glucose 81.0 mg/dl (70-99(Fasting)); Potassium 3.7 mmol/L (3.5-5.1); Sodium 144.0 mmol/L (136-145)
--- NOTE | 2025-04-27 08:19 | XRay Report ---
XR chest 1V portable CLINICAL HISTORY: Pneumomediastinum. COMPARISON STUDY: Chest radiograph April 26, 2025. FINDINGS: Lung volumes are normal. A trace right apical pneumothorax is unchanged. Previously describ ed trace left apical pneumothorax is not identified. Moderate pneumomediastinum is similar to prior c hest radiograph. Associated soft tissue gas within the lower neck and chest wall is similar to prior exam. Cardiomediastinal silhouette is stable. IMPRESSION: 1. Moderate pneumomediastinum and associated soft tissue gas within the neck and chest wall, similar to prior exam. 2. No change in a trace right apical pneumothorax. ACT 112: Negative or not required by law. Electronically signed by: Moe Edgar M.D. 04/27/2025 8:18 AM
[2025-04-27] MEDS: LIDOCAINE 5% 1 PATCH TD SCH (09:12)
--- NOTE | 2025-04-27 14:33 | Hospitalist Progress Note ---
Date of Service April 27, 2025 Assessment & Plan (1) Pneumomediastinum: Plan: Incidental finding on CT scans. Serial chest x-rays remain stable. Small bilateral apical pneumothoraces noted. Will follow. Continue supportive care (2) Acute kidney injury: Plan: Resolved with IV fluids. IV rate has been tapered down. Monitor urine output. Serial labs (3) Metabolic encephalopathy: Plan: Currently nonverbal. Supportive care. Tox screen is negative. He appears to have psychiatric issues. Psychiatric evaluation can take place at the senior living since they will be following up. Plan Hopeful return to the [facility] tomorrow, April 28 Admission and Anticipated Discharge Date Admission Date: April 25, 2025 Subjective Fortunately the pneumomediastinum appears to be stable. Serial chest x-rays are unchanged. Our psychiatry liaison states that mental health examination can occur at the senior living since he will have continued follow-up at the senior living. Sodium has improved to 144. IV fluids down titrated today, April 27 Review of Systems 2 Review of Systems: The patient is awake but remains nonverbal with me. Physical Exam 2 Physical Exam: General-alert but nonverbal. No fever. HEENT-head atraumatic and normocephalic, pupils equal and reactive to light, extraocular muscles intact Neck-no lymphadenopathy or thyromegaly, trachea midline Chest-clear to auscultation. No rales, wheezing or rhonchi from anterior approach. He is mildly tachypneic Cardiac-slightly tachycardic regular rate and rhythm, normal S1 and S2 Abdomen-normal bowel sounds, no hepatosplenomegaly Extremities-no cyanosis, clubbing, or edema Skinsubcutaneous crepitus palpable in lateral upper chest region and neck region Neuro-cranial nerves II through XII intact, motor and sensory function within normal limits, strength symmetrical, no focal deficits. Moving all extremities randomly Psych-nonverbal. Cannot assess Results & Data Results & Data Vital Signs (Past 12 Hours) Vital Signs Temp Pulse Resp BP Pulse Ox O2 Del Method 04/27/25 11:23 36.5 C 67 14 139/80 96 Room Air 04/27/25 07:53 36.4 C L 67 14 144/83 H 94 Room Air 04/27/25 03:14 36.5 C 75 18 105/68 98 Room Air Laboratory Results 04/27/25 07:02 04/27/25 07:02 PG Care Time/CCT Total # of Minutes Spent Total Time Spent with Patient: Total time spent is greater than 50% in coordination of care (as documented) at patient's floor/unit and/or counseling patient: Coding Level of Care Code 71698 SUB INP/OBS CARE 2/35MIN Diagnoses Pneumomediastinum J98.2 Acute kidney injury N17.9 Metabolic encephalopathy G93.41
[2025-04-27] MEDS: REMOVE LIDODERM PATCH SCH (20:58)
--- NOTE | 2025-04-28 08:24 | XRay Report ---
EXAM: XR chest 1V portable CLINICAL HISTORY: pneumomediastinum TECHNIQUE: An X-ray image of the chest is obtained in AP projection. COMPARISON: 04/26/2025. FINDINGS: Pulmonary Parenchyma: Lungs are clear bilaterally. No evidence of consolidation, collapse, or focal opacities. No pulmonary nodules are identified. No evidence of pleural effusion or pleural thickening. Heart and Mediastinum: There is apparent a fair lucency in the left paracardiac region. Small and thin band of air lucency seen in the right of mediastinum/paracardiac region as well as superior mediastinum. Heart size and shape are normal. No mediastinal widening or masses. No hilar or mediastinal lymphadenopathy. Bony Thorax: Bony thorax appears intact without fractures or deformities. Soft Tissues: Multiple bilateral supraclavicular confluent patches of air lucency in the soft tissues. IMPRESSION: 1. Pneumomediastinum 2. Supraclavicular bilateral soft tissue surgical emphysema. 3. Comparing the previous x-ray dated 04/26/2025 the findings remain stable. Electronically signed by Eriberto Higuera 04-28-2025 08:24 AM
[2025-04-28 10:20] LABS: Hematocrit (blood only) 42.3 % (42.0-52.0); Hemoglobin 14.8 g/dl (14.0-18.0); Immature Granulocytes # (auto) 0.02 K/uL (0.01-0.20); Immature Granulocytes % (auto) 0.3 %; Mean Corpuscular Hemoglobin 31.1 pg (25.0-34.0); Mean Corpuscular Volume 88.9 fL (80.0-100.0); Platelet Count 155 K/uL (130-400); RDW Standard Deviation 37.8 fL (36.4-46.3); Red Blood Count 4.76 M/uL (4.70-6.10); White Blood Count 7.27 K/ul (4.8-10.8)
[2025-04-28 10:26] LABS: Anion Gap 12.0 (3-11); Blood Urea Nitrogen 19.0 mg/dl (6-23); Calcium 8.8 mg/dl (8.6-10.3); Carbon Dioxide 24.0 mmol/L (21-32); Chloride 104.0 mmol/L (98-107); Creatinine Clr Calc Pharmacy 128.2 ml/min; Glucose 66.0 mg/dl (70-99(Fasting)); Potassium 3.6 mmol/L (3.5-5.1); Sodium 140.0 mmol/L (136-145)
--- NOTE | 2025-04-28 11:44 | Psychiatric Consultation ---
Date of Consultation April 28, 2025 Impression / Recommendations Impression 29-year-old white male from a local skilled nursing who has not been eating or speaking for several days and now has become volume depleted and encephalopathic. Incidental finding of pneumomediastinum seen on CT scanning. Psychiatry consulted for evaluation. Pt presented after recent criminal arrest in a nonverbal state with limited spontaneous movement and lack of oral intake. Past history unknown. Mild suspicion for catatonia however Lorazepam challenge with 2mg IV lorazepam did not yield an improvement in function or mental status and impacted vital signs negatively. Catatonia could be possible secondary to trauma, stress, or an active mood episode. Less likely to be a conversion disorder or selective mutism. Could consider additional Lorazepam 2mg IV and assess for improvement however be mindful for decreased BP and RR. Consider possible neurologic injury, metabolic/structural causes. R/o systemic medical causes. Overall, I spent a total of 80 minutes with this case including review of chart records, nursing report, review of lab work, direct evaluation of the patient at bedside, counseling the patient, discussion of the patient with the hospitalist provider, discussion with the psychiatric liaison during clinical rounds, and documentation in the electronic health record. (1) Metabolic encephalopathy: (2) Pneumomediastinum: (3) Acute kidney injury: Plan -Consider brain MRI/CT, EEG, Neurology consult Psych History Identifying Data 29-year-old white male from a local skilled nursing who has not been eating or speaking for several days and now has become volume depleted and encephalopathic. Incidental finding of pneumomediastinum seen on CT scanning. Psychiatry consulted for evaluation. Chief Complaint Pt is nonverbal History of Present Illness On exam pt has his eyes closed and is slightly responsive to sternal rub with facial grimacing. Unable to follow commands and maintains closed eyes. Nursing reported pt has followed simple commands intermittently. Does not maintain posture when limbs are moved. After receiving Lorazepam 2mg IV there is no significant change in function and mental status. BP and pulse rate lowered after lorazepam admin. Chart review: from [place], then lived in the [place] area for a bit before coming to [employer] as student. No past inpatient hospitalizations here. Arrested on 04/13/25 for criminal charges of criminal tresspassing, resisting arrest and disorderly conduct. 04/28/25 11:30 (created 04/28/25 12:46) - Psychiatric Liason Note by Nissa Sahu Patient was seen on rounds with Dr. Dickerson. Patient does not arouse to voice, but arouses to touch- moving hands/arms. The patient is not alert, so orientation status and SI/HI could not be confirmed. Due to the patient being in skilled nursing, there are two guards at bedside. They endorse that he has been at the skilled nursing since April 13, 2025 and that he has not been eating or drinking. They also reported that he has been in a suicide smock because he will not give us any information. In looking through previous notes, it is reported that he has had a 20lb weight loss since going to the skilled nursing on 04/13/25. See Dr. Ruiz report for recommendations on medications. We will continue to round on and support this patient as needed. Allergies Allergy/AdvReac Type Severity Reaction Status Date / Time No Known Allergies Allergy Verified 04/25/25 15:45 Home Medications Medication Instructions Recorded Confirmed Type multivitamin 1 tab PO DAILY 04/25/25 04/25/25 History nutritional supplements 1 ea PO TID 04/25/25 04/25/25 History Patient History Medical History Depression Anxiety History of kidney stones Surgical History History of lithotripsy Social History Smoking Status: Current some day smoker Tobacco Type: Cigarettes Preferred Language: Kyrgyz [employer] Required: No Current Living Situation: Other Current Living Situation Comment: [facility] Feels Safe at Home: Declines to Answer Physical Exam Mental Examination: Appearance: Disheveled Eye Contact: No Eye Contact Motor Behavior: Slowed Vital Signs (Past 24 Hours): Last Vital Signs Temp 36.8 C 04/28/25 03:42 Pulse 65 04/28/25 07:00 Resp 15 04/28/25 07:00 BP 150/79 H 04/28/25 07:00 Pulse Ox 100 04/28/25 07:00 O2 Del Method Room Air 04/28/25 07:45 Results & Data (PSY) Medications Administered Heparin Sodium (Porcine) (Heparin Sod 5,000 Unit/0.5 Ml Vial) 5,000 units SQ Q12 TERESA Stop: 05/26/25 02:37 Last Admin: 04/28/25 10:38 Dose: Not Given Documented By: Admin: 04/27/25 20:58 Dose: 5,000 units Documented By: Admin: 04/27/25 09:10 Dose: 5,000 units Documented By: Admin: 04/26/25 20:59 Dose: 5,000 units Documented By: Admin: 04/26/25 08:45 Dose: Not Given Documented By: Admin: 04/26/25 02:54 Dose: 5,000 units Documented By: NAB Sodium Chloride (1/2 Nss) 1,000 mls @ 50 mls/hr IV .Q20H TERESA Stop: 04/28/25 17:29 Last Infusion: 04/28/25 10:41 Dose: 50 mls/hr Documented By: Admin: 04/28/25 10:40 Dose: 80 mls/hr Documented By: Infusion: 04/28/25 08:48 Dose: Infused Documented By: Admin: 04/27/25 20:18 Dose: 80 mls/hr Documented By: Infusion: 04/27/25 20:12 Dose: Infused Documented By: Admin: 04/27/25 10:00 Dose: 80 mls/hr Documented By: Infusion: 04/27/25 09:21 Dose: Infused Documented By: Admin: 04/26/25 19:43 Dose: 80 mls/hr Documented By: Infusion: 04/26/25 19:43 Dose: Infused Documented By: Admin: 04/26/25 11:35 Dose: 125 mls/hr Documented By: Infusion: 04/26/25 11:15 Dose: Infused Documented By: Admin: 04/26/25 02:50 Dose: 125 mls/hr Documented By: Infusion: 04/26/25 02:16 Dose: Infused Documented By: Admin: 04/25/25 18:36 Dose: 125 mls/hr Documented By: ARS Acetaminophen (Ofirmev) 1,000 mg in 100 mls @ 400 mls/hr IV Q8H PRN PRN Reason: Fever or headache Stop: 04/29/25 02:37 Last Infusion: 04/27/25 04:22 Dose: Infused Documented By: Admin: 04/27/25 03:50 Dose: 400 mls/hr Documented By: OS Lidocaine (Lidocaine 5% 1 Patch) 1 patch TD QAM [facility] Stop: 05/27/25 08:59 Last Admin: 04/28/25 10:38 Dose: 1 patch Documented By: Admin: 04/27/25 09:12 Dose: Not Given Documented By: CF Lorazepam (Lorazepam 2 Mg/1 Ml Vial) 1 mg IV Q6H PRN PRN Reason: Anxiety/Agitation Stop: 05/26/25 23:29 Last Admin: 04/27/25 21:02 Dose: 1 mg Documented By: OS Miscellaneous (Remove Lidoderm Patch) 1 each N/A DAILY@2100 [facility] Stop: 05/27/25 20:59 Last Admin: 04/27/25 20:58 Dose: 1 each Documented By: OS Multivitamins (Multivitamin Tab) 1 tab PO DAILY [facility] Stop: 05/26/25 08:59 Last Admin: 04/28/25 10:39 Dose: Not Given Documented By: Admin: 04/27/25 09:13 Dose: Not Given Documented By: Admin: 04/26/25 08:45 Dose: Not Given Documented By: CF Coding [place] [address] IN/OBS CONSULT LVL 5,80M Patient Type Established History Detailed Exam Detailed Medical Decision Making High Complexity Diagnoses Metabolic encephalopathy G93.41 Pneumomediastinum J98.2 Acute kidney injury N17.9
--- NOTE | 2025-04-28 12:45 | Electrocardiogram Report ---
Test Reason : Blood Pressure : */* mmHG Vent. Rate : 62 BPM Atrial Rate : 62 BPM P-R Int : 134 ms QRS Dur : 84 ms QT Int : 428 ms P-R-T Axes : 79 88 73 degrees QTcB Int : 434 ms Normal sinus rhythm with sinus arrhythmia Normal ECG When compared with ECG of 25-Apr-2025 16:58, No significant change was found Confirmed by Jeremiah Villalobos ([id number]) on 04/28/2025 12:45:31 PM Referred By: [facility] Confirmed By: Jeremiah Villalobos
--- NOTE | 2025-04-28 19:44 | Hospitalist Progress Note ---
"Date of Service April 28, 2025 Assessment & Plan (1) Pneumomediastinum: (2) Acute kidney injury: (3) Anorexia: (4) Nonverbal: (5) Metabolic encephalopathy: Plan #Anorexia | Non-verbal | ? catatonia v. metabolic encephalopathy Per correctional officers, patient has not been eating or drinking over the past 2 weeks Talk screen negative Psychiatry consult appreciated Trial of lorazepam 2 mg IV x 1 Initially, patient did not respond to this, but then later in the day it was reported that he was able to eat independently in the room Voiding independently Still nonverbal #Pneumomediastinum Incidental finding on CT scans. Serial chest x-rays remain stable. Small bilateral apical pneumothoraces noted. Will follow. Continue supportive care. Repeat imaging on 04/28 is stable #ALLYSON (resolved) Cr 1.61 -> 0.73 Resolved with fluids; suspected prerenal in the setting of dehydration and poor p.o. intake Disposition: Continued stay for psychiatric evaluation Admission and Anticipated Discharge Date Admission Date: April 25, 2025 Subjective Mr. Dumont is nonverbal this morning. Correctional officers at bedside report that this is his baseline. He recently came to the correctional facility 2 weeks ago for trespassing and disorderly conduct. He was then sent in to the emergency department after being found unresponsive, then complaining of stomach pain. Patient has not been eating or drinking for the past 2 weeks. Unable to obtain history at this time. ROS: Unable to obtain at this time Nursing staff also reported that patient was grimacing and pointing to his chest earlier around 0730. Repeat EKG without acute changes in morphology. Troponin WNL. Review of Systems Review of Systems: See HPI above Physical Exam Physical Exam: General: Nonverbal; no acute distress; non-toxic appearing; cachectic; SpO2 98% on RA HEENT: normocephalic, atraumatic; patient refuses to open eyes when asked; patient does exhibit PERRLA, but his eyes overt upwards whenever lights flashed; unable to assess EOMs; unable to assess hearing/vision; ? Catatonic Neck: supple; no lymphadenopathy; trachea midline Skin: warm, dry without signs of tenting; no cyanosis; no rashes, bruising, lesions, or erythema noted CV: chest wall NTP; RRR; S1/S2 normal; no murmurs/rubs/gallops; pulses intact and symmetric at radial, DP, and PT Lungs: no acute respiratory distress; symmetrical chest wall expansion; clear breath sounds across all lung [place] w/o adventitious sounds; no wheezing ABD: Soft, NTP; BS present; no rebound/guarding; no distention MSK: no tics or fasciculations; no edema noted in the LEs b/l, nonerythematous Neuro: Patient does not respond to questioning; does not respond to command; patient grimaces with painful stimuli; unable to assess speech or sensation Results & Data Results & Data Vital Signs (Past 12 Hours) Vital Signs Pulse Pulse Resp BP BP Pulse Ox O2 Del Method 04/28/25 15:50 73 16 112/64 98 Room Air 04/28/25 14:19 58 L 04/28/25 11:18 69 16 111/85 98 Room Air 04/28/25 07:45 Room Air PG Care Time/CCT Total # of Minutes Spent Total Time Spent with Patient: Total time spent is greater than 50% in coordination of care (as documented) at patient's floor/unit and/or counseling patient: Coding [place] [address] SUB INP/OBS CARE 2/35MIN Patient Type Established Medical Decision Making Moderate Complexity Diagnoses Pneumomediastinum J98.2 Acute kidney injury N17.9 Anorexia R63.0 Nonverbal R47.01 Metabolic encephalopathy G93.41"
--- NOTE | 2025-04-29 12:58 | Discharge Summary ---
Discharge Summary Date of Service April 29, 2025 Principal Dx & Hospital Course #1 = Principal Diagnosis (1) Pneumomediastinum: (2) Acute kidney injury: (3) Anorexia: (4) Nonverbal: (5) Metabolic encephalopathy: Plan This patient is a 29-year-old male who presented on 04/29 from [facility] for abdominal pain. Patient was arrested and was at the facility for 2 weeks prior to arrival, and at that time he has not ate or drink since being there. He has been completely nonverbal for them at the correctional facility. A/P CT on arrival revealed a large amount of pneumomediastinum seen in the lower chest. Day of discharge 04/29: VSS Mr. Dumont appears to be doing better today when compared to yesterday. While he is still nonverbal, he exhibits spontaneous movements, and appears alert and oriented. Unlike yesterday, he does respond to some commands, such as gripping fingers and wiggling toes. He does not respond to questioning, and does not answer when asked if he has been on any psychiatric medications in the past. Correctional officers at bedside also report that he ate all of his breakfast this morning independently. #Anorexia | Non-verbal | ? catatonia v. Antisocial personality disorder Tox screen negative Psychiatry consult appreciated Trial of lorazepam 2 mg IV x 1 Initially, patient did not respond to this, but then later in the day it was reported that he ate a full meal independently in the room on 04/28 and 04/29 Voiding independently Still nonverbal at time of discharge on 04/29: Lower suspicion for catatonia, but could be an atypical presentation No indications this is an active episode of psychosis due to depression More likely this is behavioral, with antisocial traits given his past actions No additional recs on psychiatric medications at this time Will plan to touch base with the [facility] for psychiatric follow-up #Pneumomediastinum (stable) Incidental finding on CT scans on 04/25. Serial chest x-rays remain stable. Small bilateral apical pneumothoraces noted. Will follow. Continue supportive care. Repeat imaging on 04/28 is stable #ALLYSON (resolved) Cr 1.61 -> 0.73 Resolved with fluids; suspected prerenal in the setting of dehydration and poor p.o. intake Touched base with [facility] medical department (Cassie -purchasing administrative assistant medical translator) and provided signout for transitional care. Cassie does confirm that he has an upcoming appointment scheduled with psychiatry. Disposition: Discharge to correctional facility Notes For Next Care Provider Patient hospitalized 04/25 - 04/29 for reported abdominal pain. He is nonverbal at baseline. He reportedly had been refusing food and drinks at the correctional facility x 2 weeks prior to arrival. Blood work revealed an ALLYSON on arrival which quickly corrected with IV fluids (suspected to be prerenal in the setting of poor p.o. intake). Incidental finding of pneumomediastinum on initial imaging; serial imaging to ensure stability did not reveal any changes. Past history unknown. Patient was evaluated by our psychiatric team, and there was a mild suspicion for catatonia (perhaps secondary to a mood disorder) vs. Metabolic encephalopathy. He received a trial of lorazepam 2 mg IV, which did not yield improvement in his mental status initially. However patient did start eating and drinking independently a few hours later. It is unclear if this was secondary to improvement in his metabolic encephalopathy with fluid management versus the lorazepam. Would be an atypical presentation for catatonia. More likely behavioral traits of antisocial personality disorder. Recommend psychiatric follow-up as an outpatient or via the [facility]. Admission HPI Per Admitting Provider 29-year-old white male from a local [place] [facility] who has not been eating or speaking for several days and now has become volume depleted and encephalopathic. Incidental finding of pneumomediastinum seen on CT scanning. Fortunately his oxygen saturation is stable. No apparent illicit drug use or trauma according to [place] [facility] guards who are present. IV fluids have been started. Chest x-ray and EKG ordered and pending. He is admitted for further evaluation and treatment Admission Exam Per Admitting Provider General-alert but nonverbal. No fever. HEENT-head atraumatic and normocephalic, pupils equal and reactive to light, extraocular muscles intact Neck-no lymphadenopathy or thyromegaly, trachea midline Chest-clear to auscultation. No rales, wheezing or rhonchi from anterior approach. He is mildly tachypneic Cardiac-slightly tachycardic regular rate and rhythm, normal S1 and S2 Abdomen-normal bowel sounds, no hepatosplenomegaly Extremities-no cyanosis, clubbing, or edema Neuro-cranial nerves II through XII intact, motor and sensory function within normal limits, strength symmetrical, no focal deficits. Moving all extremities randomly Psych-nonverbal. Cannot assess Discharge Exam General: Nonverbal, but does appear more alert today when compared to the day prior; no acute distress; correctional officers at bedside x 2; non-toxic appearing; cachectic; SpO2 97% on RA HEENT: normocephalic, atraumatic; PERRLA with EOMs; patient does appear to have hearing and vision intact Neck: supple; no lymphadenopathy; trachea midline Skin: warm, dry without signs of tenting; no cyanosis; no rashes, bruising, lesions, or erythema noted CV: chest wall NTP; RRR; S1/S2 normal; no murmurs/rubs/gallops; pulses intact and symmetric at radial, DP, and PT Lungs: no acute respiratory distress; symmetrical chest wall expansion; clear breath sounds across all lung [place] w/o adventitious sounds; no wheezing ABD: Soft, NTP; BS present; no rebound/guarding; no distention MSK: no tics or fasciculations; no edema noted in the LEs b/l, nonerythematous Neuro: Patient does not respond to questioning, but does follow some commands (such as sales officer fingers, and wiggle toes); unable to assess speech or sensation Discharge Plan Discharge Items Patient Disposition: Correctional Facility Reason For Visit: VOLUME DEPLETION, PNEUMOMEDIASTINUM Discharge Diagnosis: ALLYSON, volume depletion, pneumomediastinum Condition on Discharge: Fair Activity: Resume your previous activity Non-emergency contact: Primary Care Provider Call non-emergency contact if: you have any medication questions, your symptoms worsen, your pain is not controlled and your pain is worsening Follow-up/Referrals: [facility] [Primary Care Provider] - Diet: Regular Addtl Attending Provider Instructions: You were hospitalized at [facility] from 04/25 to 04/29 after developing stomach pain while at your correctional facility. On arrival, your blood work revealed that you had an acute kidney injury. This was likely caused by volume depletion in the setting of poor food/liquid intake. Your kidney f unction quickly corrected with IV fluids, and is back to your baseline at time of discharge. Additionally your vitals are currently stable at time of discharge. For these reasons, we feel you are safe to return to the correctional facility. We plan to touch base with the [facility] at your correctional facility for transitional care. It is important that you continue to eat and drink in order to ensure proper perfusion of your kidneys and thus prevent future kidney injuries. Additionally, there was an incidental finding on your CT scans of "pneumomediastinum". This refers to a condition where air accumulates in your chest. It can resolve without intervention in most cases. Serial imaging of your chest revealed that there was no change in this air accumulation throughout your hospital stay. If you develop any new or worsening symptoms, such as fever, chills, intractable chest/abdominal pain, or difficulty breathing, please return to the emergency department immediately. It was a pleasure to take care of you. Please reach out with any questions or concerns. Sincerely, The hospital medicine team at [facility] Pending Studies at Discharge: No Stand-Alone Forms: [facility] Skilled Items Patient informed of condition?: Yes Discharge Level of Care: Other Communicable Disease: No Discharge Prognosis: Stable Lines: None Urinary Catheter: No Medications and DC Order Prescriptions: Continued multivitamin Tablet 1 tab PO DAILY nutritional supplements Liquid 1 ea PO TID Discharge Orders: Discharge Order (Routine); Ordered 04/29/25 Ordered By: Josafat Lassiter Admission Data Admit Date/Time: 04/25/25 17:14 Attending Provider: Shade Desir Admit Provider: Alexis Albert Primary Care Provider: [facility] Other Providers: Alexis Alebrt; Aziza Bhandari; Sunil Ortega; Mary Ann Ingram; Selena Caldwell; Pantera Dickerson; Rajani Benavidez; Yolette Olson; Shantal Chamberlain Hospital Stay Data Consultations 04/25/25 16:47 ED Decision to Admit Stat 04/28/25 09:58 Consult Psychiatry Routine Diagnostic Imagining Performed 04/25/25 10:39 CT abd pelvis IV con only Stat 04/25/25 11:49 CT chest diagnostic wo con Stat 04/25/25 14:57 CT chest diagnostic wo con Stat Discharge Instructions Given to Patient (Per Discharging Provider) You were hospitalized at [facility] from 04/25 to 04/29 after developing stomach pain while at your correctional facility. On arrival, your blood work revealed that you had an acute kidney injury. This was likely caused by volume depletion in the setting of poor food/liquid intake. Your kidney function quickly corrected with IV fluids, and is back to your baseline at time of discharge. Additionally your vitals are currently stable at time of discharge. For these reasons, we feel you are safe to return to the correctional facility. We plan to touch base with the [facility] at your correctional facility for transitional care. It is important that you continue to eat and drink in order to ensure proper perfusion of your kidneys and thus prevent future kidney injuries. Additionally, there was an incidental finding on your CT scans of "pneumomediastinum". This refers to a condition where air accumulates in your chest. It can resolve without intervention in most cases. Serial imaging of your chest revealed that there was no change in this air accumulation throughout your hospital stay. If you develop any new or worsening symptoms, such as fever, chills, intractable chest/abdominal pain, or difficulty breathing, please return to the emergency department immediately. It was a pleasure to take care of you. Please reach out with any questions or concerns. Sincerely, The hospital medicine team at [facility] Total Time Total Time Spent Total Time Spent (In Minutes): 25 Coding [place] [address] IN/OBS DISCH 30 MIN/LESS Patient Type Established History Comprehensive Exam Comprehensive Medical Decision Making Moderate Complexity Diagnoses Pneumomediastinum J98.2 Acute kidney injury N17.9 Anorexia R63.0 Nonverbal R47.01 Metabolic encephalopathy G93.41
--- NOTE | 2025-04-29 16:29 | Psychiatric Progress Note ---
Date of Service April 29, 2025 Impression / Recommendations Impression 29-year-old white male from a local [facility] who has not been eating or speaking for several days and now has become volume depleted and encephalopathic. Incidental finding of pneumomediastinum seen on CT scanning. Psychiatry consulted for evaluation. A: Continues to be non verbal and would not answer any questions. Still have a low suspicion this is catatonia but could be an atypical presentation. Possible behavioral component as there is concern for antisocial traits given his past actions. Cannot r/o conversion disorder but that is rare. Psychosis and depression could cause these findings but no indication he is an active episode. Could administer another lorazepam 2mg dose and assess for improvement to definitely clarify catatonia concerns. Consider brain imaging to r/o neurological causes. Overall, I spent a total of 30 minutes with this case including review of chart records, nursing report, review of lab work, direct evaluation of the patient at bedside, counseling the patient, discussion of the patient with the hospitalist provider, discussion with the psychiatric liaison during clinical rounds, and documentation in the electronic health record. (1) Metabolic encephalopathy: (2) Pneumomediastinum: (3) Acute kidney injury: Interval History Identifying Information 29-year-old white male from a local prison who has not been eating or speaking for several days and now has become volume depleted and encephalopathic. Incidental finding of pneumomediastinum seen on CT scanning. Psychiatry consulted for evaluation. Chief Complaint Non-verbal Subjective Subjective On interview pt has his eyes open, acknowledges my presences through body language. Does not answer any questions. Per nursing ate food earlier in the AM. Physical Exam Mental Examination Appearance: Disheveled Eye Contact: No Eye Contact Motor Behavior: Slowed Vital Signs (Past 24 Hours) Last Vital Signs Temp 36.6 C 04/29/25 13:44 Pulse 57 L 04/29/25 13:44 Resp 20 04/29/25 13:44 BP 117/74 04/29/25 13:44 Pulse Ox 97 04/29/25 13:44 O2 Del Method Room Air 04/29/25 10:58
== END 2025-04-29 14:11 | DRG 199 ==
LOC: SUATTDRO → ED 09:55 → EDINP 17:14 → SUATTDRO 17:14 → 2S 20:45